=== PATIENT | female | born 1970 | race African-American/Black ===

== ENCOUNTER 2017-12-26 16:12 | Emergency (ER) | payer OTHER ==
--- NOTE | 2017-12-26 17:13 | PDOC ---
Rapid Medical Evaluation Time Seen by Provider: 12/26/17 17:07 Medical Evaluation: Allergies Allergy/AdvReac Type Severity Reaction Status Date / Time peanut [Peanut] Allergy Verified 01/31/14 09:00 Shellfish Allergy Verified 01/31/14 09:00 12/26/17 17:07 Pt presents with headache, congestion, sore throat, cough, sinus fullness, and feeling like she cannot catch her breath for approximately one week. States that the headache started today. Exam: Neurologically intact, NAD, TTP over the L maxillary sinus Orders: Nothing Pt to proceed to ED for further evaluation Discharge Disposition - Diagnosis Headache - Referrals Referrals: Lucio Finn MD [Primary Care Provider] - - Patient Instructions - Post Discharge Activity
[2017-12-26 17:14] VITALS: BP 147/91; PULSE 94; TEMP 98.8; BMI 44.4
--- NOTE | 2017-12-26 17:44 | PDOC ---
History of Present Illness - General Chief Complaint: Sore Throat Stated Complaint: HEADACHE, THROAT PAIN, FACE PAIN Time Seen by Provider: 12/26/17 17:07 - History of Present Illness Initial Comments: 39-year-old female without comorbidities presents for evaluation of sinus congestion and pressure 2 weeks. She has subjective fever at home. She's taken NyQuil with minimal relief. 12/26/17 17:42 Past History - Past Medical History Allergies/Adverse Reactions: Allergies Allergy/AdvReac Type Severity Reaction Status Date / Time peanut [Peanut] Allergy Verified 12/26/17 17:11 Shellfish Allergy Verified 12/26/17 17:11 Home Medications: Ambulatory Orders Amox-Tr/K Cl [Augmentin - 875Mg Tablet] 1 tab PO BID #20 tablet 12/26/17 Budesonide [Rhinocort Allergy] 1 spray NS ONCE #1 spray.pump 12/26/17 Naproxen Sodium [Aleve] 220 mg PO BID 12/26/17 Anemia: No Asthma: No Cancer: No Cardiac Disorders: No CVA: No COPD: No CHF: No Dementia: No Diabetes: No GI Disorders: No Disorders: No HTN: No Hypercholesterolemia: No Liver Disease: No Seizures: No Thyroid Disease: No - Surgical History Abdominal Surgery: No Appendectomy: No Cardiac Surgery: No Cholecystectomy: No Lung Surgery: No Neurologic Surgery: No Orthopedic Surgery: No - Suicide/Smoking/Psychosocial Hx Smoking Status: No Smoking History: Never smoked Have you smoked in the past 12 months: No Number of Cigarettes Smoked Daily: 0 Hx Alcohol Use: No Drug/Substance Use Hx: No Substance Use Type: None Hx Substance Use Treatment: No Review of Systems - Review of Systems Constitutional: Yes: Chills, Diaphoresis, Fever HEENTM: Yes: Nose Congestion, Throat Pain All Other Systems: Reviewed and Negative *Physical Exam - Vital Signs Last Vital Signs Temp Pulse Resp BP Pulse Ox 98.8 F 94 H 20 147/91 99 12/26/17 17:11 12/26/17 17:11 12/26/17 17:11 12/26/17 17:11 12/26/17 17:11 - Physical Exam Comments: HEAD: NC/AT EYES: Conjuntiva clear Ears: Canals and TM's buldging NOSE: Injected turbinates with clear discharge THROAT: Moist mucous membrances, oral pharanx clear, uvula midline NECK: Supple without adenopathy CARDIAC: S1 S2 LUNGS: CTA Full and Equal breath sounds ABDOMEN: Soft NT ND MS: Full ROM in all joints without edema NEUROLOGIC: No gross sensory or motor deficits, NVID SKIN: Normal color and temperature no lesions or rashes 12/26/17 17:42 *DC/Admit/Observation/Transfer Diagnosis at time of Disposition: Headache, Sinusitis - Discharge Dispostion Disposition: HOME Condition at time of disposition: Stable Decision to Admit order: No - Prescriptions Prescriptions: Amox-Tr/K Cl [Augmentin - 875Mg Tablet] 1 tab PO BID #20 tablet Budesonide [Rhinocort Allergy] 1 spray NS ONCE #1 spray.pump - Referrals Referrals: Lucio Finn MD [Primary Care Provider] - - Patient Instructions Printed Discharge Instructions: Sinusitis, DI for Sinusitis Additional Instructions: Taken finish the entire course of antibiotics. Return to the emergency room should symptoms worsen or go unresolved. Please follow-up with the primary care doctor in one to 2 days for further evaluation and treatment options. - Post Discharge Activity
== END 2017-12-26 18:17 | disposition home or self-care (01) ==
LOC: JERFT 16:12
DX: J01.90 Acute sinusitis, unspecified (principal); R51 Headache
CPT/HCPCS: 99281-25

== ENCOUNTER 2023-01-13 18:33 | Emergency (ER) | payer OTHER ==
[2023-01-13 18:49] VITALS: TEMP 98.2; BMI 43.2
[2023-01-13] MEDS ORDERED: ACETAMINOPHEN 500 MG TABLET (FP) PO ONE (20:02)
[2023-01-13] MEDS ORDERED: DEXAMETHASONE SOD PHOSPHATE 10 MG/1 ML VIAL IM ONE (20:02)
[2023-01-13] MEDS ORDERED: METHOCARBAMOL 750 MG TABLET PO ONE (20:02)
[2023-01-13] MEDS ORDERED: METHOCARBAMOL 500 MG TABLET ONE (20:25)
[2023-01-13] MEDS ORDERED: ACETAMINOPHEN 500 MG TABLET (FP) ONE (20:26)
[2023-01-13] MEDS ORDERED: DEXAMETHASONE SOD PHOSPHATE 10 MG/1 ML VIAL ONE (20:26)
[2023-01-13 21:19] VITALS: BP 118/80; PULSE 70; RESP 18
== END 2023-01-13 22:59 | disposition home or self-care (01) ==
LOC: JERFT 18:33
PROC: 3E023GC Introduction of Other Therapeutic Substance into Muscle, Percutaneous Approach (ICD-10-PCS; principal; 2023-01-13)
DX: S06.9X9A Unspecified intracranial injury with loss of consciousness of unspecified duration, initial encounter (principal); M54.50 Low back pain, unspecified; M25.561 Pain in right knee; K08.89 Other specified disorders of teeth and supporting structures; M25.511 Pain in right shoulder; M25.512 Pain in left shoulder; W01.0XXA Fall on same level from slipping, tripping and stumbling without subsequent striking against object, initial encounter; Y99.0 Civilian activity done for income or pay
CPT/HCPCS: 70450-TC; 72100-TC-FY; 73562-TC-RT-FY; 99284-25; J1100

== ENCOUNTER 2023-06-18 22:14 | Emergency (ER) | payer OTHER ==
[2023-06-18 22:21] VITALS: BP 182/89; PULSE 82; RESP 20; TEMP 97; BMI 43.8
[2023-06-19] MEDS ORDERED: KETOROLAC TROMETHAMINE 15 MG/ML VIAL ONE (00:24)
[2023-06-19] MEDS: KETOROLAC TROMETHAMINE 30 MG/1 ML VIAL IVPUSH ONE (00:30)
[2023-06-19 00:49] LABS: BASO % 0.6 % (0-2.0); EOS % 3.2 % (0-4.5); HEMATOCRIT 40.3 % (32.4-45.2); HEMOGLOBIN 13.3 GM/dL (10.7-15.3); LYMPH % 41.5 % (8-40); MCH 27.1 pg (25.7-33.7); MCHC 33.1 g/dl (32.0-36.0); MEAN CELL VOLUME 81.8 fl (80-96); MONO % 5.7 % (3.8-10.2); PLATELET COUNT 280 10^3/uL (134-434); RBC 4.93 M/mm3 (3.60-5.2); RDW 15.9 % (11.6-15.6); WHITE BLOOD COUNT 4.9 K/mm3 (4.0-10.0)
[2023-06-19 00:51] LABS: PH,URINE 6.5 (5.0-8.0); URINE APPEARANCE CLEAR; URINE BILIRUBIN NEGATIVE (NEGATIVE); URINE COLOR YELLOW; URINE GLUCOSE (UA) NEGATIVE (NEGATIVE); URINE KETONE TRACE (NEGATIVE); URINE LEUK ESTERASE NEGATIVE (NEGATIVE); URINE NITRITE NEGATIVE (NEGATIVE); URINE PROTEIN NEGATIVE (NEGATIVE)
[2023-06-19 01:07] LABS: CHLORIDE 107 mmol/L (98-107); SODIUM 140 mmol/L (136-145)
[2023-06-19 01:10] LABS: ALBUMIN 3.7 g/dl (3.4-5.0); BLOOD UREA NITROGEN 17.6 mg/dL (7-18); CO2 28 mmol/L (21-32); GLUCOSE,RANDOM 83 mg/dL (74-106); MAGNESIUM 2.6 mg/dL (1.8-2.4)
[2023-06-19 01:13] LABS: CREATININE 0.9 mg/dL (0.55-1.3); SGOT/AST 50 U/L (15-37); SGPT/ALT 33 U/L (13-61)
[2023-06-19 01:15] LABS: BILIRUBIN,TOTAL 0.9 mg/dL (0.2-1); TOT PROT 7.9 g/dl (6.4-8.2)
[2023-06-19 01:16] LABS: ALK PHOS 82 U/L (45-117)
[2023-06-19 01:25] LABS: ANION GAP 5 mmol/L (4-13); POTASSIUM 6.1 mmol/L (3.5-5.1)
[2023-06-19 02:39] LABS: POTASSIUM 3.7 mmol/L (3.5-5.1)
[2023-06-19 02:40] LABS: CALCIUM 9.6 mg/dL (8.5-10.1)
[2023-06-19 02:41] LABS: BLOOD UREA NITROGEN 16.6 mg/dL (7-18)
[2023-06-19 02:44] LABS: CREATININE 0.7 mg/dL (0.55-1.3)
[2023-06-19] MEDS ORDERED: DEXAMETHASONE SOD PHOSPHATE 10 MG/1 ML VIAL ONE (04:05)
[2023-06-19] MEDS: DEXAMETHASONE SOD PHOSPHATE 10 MG/1 ML VIAL IVPUSH ONE (04:10)
== END 2023-06-19 04:16 | disposition home or self-care (01) ==
LOC: JER 22:14
PROC: 3E0333Z Introduction of Anti-inflammatory into Peripheral Vein, Percutaneous Approach (ICD-10-PCS; principal; 2023-06-18)
PROC: 3E033GC Introduction of Other Therapeutic Substance into Peripheral Vein, Percutaneous Approach (ICD-10-PCS; 2023-06-18)
DX: M54.50 Low back pain, unspecified (principal); R05.9 Cough, unspecified; K80.20 Calculus of gallbladder without cholecystitis without obstruction; K56.7 Ileus, unspecified; R10.84 Generalized abdominal pain
CPT/HCPCS: 36415; 74177-TC; 80048; 80053; 81003; 83735; 84484; 84703; 85025; 87086; 93005; 93010; 99285-25; J1100; Q9967